=== PATIENT | male | born 1950 | race Caucasian/White ===

== ENCOUNTER → 2023-11-13 11:33 | Outpatient (REF) | payer MEDICARE, OTHER, SELFPAY | LOC: DHCBC/DCA 11:33 | PROVIDERS: ATTENDING PHYSICIAN Internal Medicine; FAMILY PHYSICIAN Internal Medicine | DX: R07.9 Chest pain, unspecified (principal); R06.09 Other forms of dyspnea; I77.810 Thoracic aortic ectasia | CPT/HCPCS: 78452; 93017; A9500; J2785 ==

== ENCOUNTER → 2023-11-20 12:59 | Outpatient (REF) | payer MEDICARE, OTHER, SELFPAY ==
[2023-11-20 16:15] LABS: % Basophils 0.2 % (0-2); % Eosinophils 4.3 % (0-6); % Immature Granulocytes 0.2 % (0-0.5); % Lymphocytes 31.9 % (20.5-51.1); % Monocytes 8.6 % (1.7-9.3); % Neutrophils 54.8 % (42.2-75.2); Absolute Eosinophils 0.2 10^3/uL (0-0.7); Absolute Lymphocytes 1.7 10^3/uL (1.2-3.4); Absolute Monocytes 0.5 10^3/uL (0.1-0.6); Absolute Neutrophils 2.9 10^3/uL (1.4-6.5); Hematocrit 43.7 % (39.0-52.0); Hemoglobin 14.8 g/dL (13.0-18.0); Mean Corp Hgb Conc. 33.9 g/dL (33.0-37.0); Mean Corpuscular Volume 88.5 fL (80.0-94.0); Mean Platelet Volume 10.3 fL (7.4-10.4); Nucleated Red Blood Cells % 0 % (-); Platelet Count 199 10^3/uL (130-400); Red Blood Cell Count 4.94 10^6/uL (4.70-6.10); Red Cell Dist. Width 13.1 % (11.5-14.5); White Blood Cell Count 5.3 10^3/uL (4.8-10.8)
[2023-11-20 16:22] LABS: ALT (SGPT) 35 U/L (0-50); AST (SGOT) 30 U/L (17-59); Albumin 4.7 g/dl (3.5-5.0); Alkaline Phosphatase 70 U/L (38-126); Blood Urea Nitrogen 20 mg/dl (9-20); Calcium 10.1 mg/dl (8.4-10.2); Carbon Dioxide 28 mmol/L (22-30); Chloride 100 mmol/L (98-107); Glucose 92 mg/dl (70-99); Potassium 4.1 mmol/L (3.5-5.1); Sodium 138 mmol/L (135-145); Total Bilirubin 1.4 mg/dl (0.2-1.3); eGFR > 60.00
== END ==
LOC: DHCBC HW 12:59
PROVIDERS: ATTENDING PHYSICIAN Internal Medicine Cardiovascular Disease; FAMILY PHYSICIAN Internal Medicine
DX: R07.9 Chest pain, unspecified (principal); R06.09 Other forms of dyspnea; I77.810 Thoracic aortic ectasia; R94.39 Abnormal result of other cardiovascular function study; R07.89 Other chest pain; R01.1 Cardiac murmur, unspecified
CPT/HCPCS: 36415; 80053; 85025; 93306

== ENCOUNTER 2023-11-22 06:16 | Day surgery (SDC) | payer MEDICARE, OTHER, SELFPAY ==
[2023-11-22] VITALS (10 sets, daily range): BP systolic 104–167; BP diastolic 58–89; BMI 28.4
[2023-11-22] MEDS: NSS 269 ML IV (07:27)
--- NOTE | 2023-11-22 08:49 | ITS.CL.CATH ---
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
Cardiac Catheterization
Procedure Report:
CARDIAC CATHETERIZATION REPORT
Date of Procedure: 11/22/2023
Referring: Kermit Patino MD
Indication: Recent onset exertional chest discomfort with abnormal exercise stress test
HEMODYNAMIC DATA
AO: 156/70
LV: 156/17
LEFT VENTRICULOGRAPHY: Normal left ventricular wall motion with EF 63%
CORONARY ANGIOGRAPHY
Dominance: Right
Left Main: Normal
LAD: Trivial luminal irregularities
Circumflex: Trivial luminal irregularities
RCA: 10-20% mid RCA stenosis with otherwise mild luminal irregularities
Closure Device: None-the procedure was performed via the right radial artery. The Aiden's test was normal prior to the procedure.
Radiation (mGy): 353
DAP (cm2.Gy): 34.1
Fluoroscopy time: 2.4 minutes
CONCLUSIONS
1: Systemic hypertension
2: Very mild nonobstructive CAD
3. Recommend aspirin and statin to achieve LDL less than 70
Copy to: Kermit Patino MD, Lennox Morrow MD ([place], [place])
David Awad MD, [facility], [facility]
[2023-11-22] MEDS: NSS 405 IV (10:06)
== END 2023-11-22 11:25 | disposition home or self-care (01) ==
LOC: CATH 06:16
PROVIDERS: ATTENDING PHYSICIAN Internal Medicine Cardiovascular Disease; FAMILY PHYSICIAN Internal Medicine; OTHER PHYSICIAN Internal Medicine
DX: I25.10 Atherosclerotic heart disease of native coronary artery without angina pectoris (principal); I10 Essential (primary) hypertension; R07.9 Chest pain, unspecified; R06.09 Other forms of dyspnea; E78.2 Mixed hyperlipidemia; Z79.82 Long term (current) use of aspirin
CPT/HCPCS: 93458; C1894; Q9967